=== PATIENT | male | born 1975 | race Caucasian/White ===

== ENCOUNTER 2021-04-22 13:02 | Emergency (ER) | payer OTHER, BC ==
[2021-04-22] MEDS: Morphine 2 MG/ML SYRINGE IM ONE ×2 (15:07→15:28)
== END 2021-04-22 16:48 | disposition home or self-care (01) ==
LOC: LL.ED 13:02 → SUPCPDRO 13:02 → LL.ED 16:48
DX: S82.832A Other fracture of upper and lower end of left fibula, initial encounter for closed fracture (principal); W19.XXXA Unspecified fall, initial encounter; Y99.0 Civilian activity done for income or pay
CPT/HCPCS: 29515; 73590; 73610; 96372; 99283; J2270

== ENCOUNTER 2022-03-25 12:22 | Emergency (ER) | payer BC | END 2022-03-25 13:06 | disposition home or self-care (01) | LOC: LL.ED 12:22 | DX: L03.116 Cellulitis of left lower limb (principal); E78.00 Pure hypercholesterolemia, unspecified; I10 Essential (primary) hypertension; K21.9 Gastro-esophageal reflux disease without esophagitis; Z79.899 Other long term (current) drug therapy | CPT/HCPCS: 99283 ==

== ENCOUNTER 2023-04-29 22:04 | Emergency (ER) | payer BC ==
[2023-04-29] MEDS: Aluminum Hydroxide/Magnesium Hydroxide/Simethicone Susp 30 ML Cup PO ONE (22:43)
[2023-04-29] MEDS: Lidocaine 2% Viscous Solution 15 ML UD PO ONE (22:43)
[2023-04-29] MEDS: Ketorolac 15 MG/ML SDV IVPUSH ONE (22:46)
[2023-04-29] MEDS: Pantoprazole 40 MG Vial IVPUSH ONE (22:46)
[2023-04-29] MEDS: Ondansetron 4 MG/2 ML SDV IVPUSH ONE (22:46)
[2023-04-29] MEDS: Sodium Chloride 0.9% 1,000 ML IV ONE (22:51)
[2023-04-29 22:55] LABS: BASOPHILS ABSOLUTE AUTO 0.01 K/uL (0.00-0.20); BASOPHILS PERCENT AUTO 0.1 % (0.0-2.0); EOSINOPHILS ABSOLUTE AUTO 0.24 K/uL (0.00-0.50); EOSINOPHILS PERCENT AUTO 2.2 % (0.0-5.0); HEMATOCRIT 46.3 % (39.0-49.0); HEMOGLOBIN 16.2 g/dL (13.1-16.8); LYMPHOCYTES ABSOLUTE AUTO 1.36 K/uL (0.50-3.50); LYMPHOCYTES PERCENT AUTO 12.3 % (10.0-50.0); MEAN CORPUSCULAR HEMOGLOBIN 30.6 pg (28.2-33.3); MEAN CORPUSCULAR VOLUME 87.5 fL (84.0-98.0); MONOCYTES ABSOLUTE AUTO 1.47 K/uL (0.00-1.00); MONOCYTES PERCENT AUTO 13.3 % (2.0-14.0); NEUTROPHILS ABSOLUTE AUTO 7.97 K/uL (1.40-7.00); NEUTROPHILS PERCENT AUTO 72.1 % (45.0-80.0); PLATELET COUNT,PLT 253 K/uL (150-350); RED BLOOD CELL COUNT 5.29 M/uL (4.33-5.41); RED CELL DISTRIBUTION WIDTH 13.4 % (11.2-14.1); WHITE BLOOD CELL COUNT,WBC 11.1 K/uL (4.0-10.2)
[2023-04-29] MEDS: Sodium Chloride 0.9% 10 ML Syringe FLUSH PRN (23:08)
[2023-04-29 23:12] LABS: ALANINE AMINOTRANSFERASE,ALT 39 U/L (12-78); ALBUMIN 3.3 g/dL (3.4-5.0); ALKALINE PHOSPHATASE 89 IU/L (46-116); ANION GAP 10.2 meq/L (7-15); ASPARTATE AMNIOTRANSFERASE,AST 23 U/L (15-37); BILIRUBIN TOTAL 0.8 mg/dL (0.2-1.0); BLOOD UREA NITROGEN,BUN 26 mg/dL (7-18); CALCIUM 8.4 mg/dL (8.5-10.1); CARBON DIOXIDE,CO2 21.8 mmol/L (21.0-32.0); CHLORIDE,CL 107 mmol/L (98-107); CREATININE 1.37 mg/dL (0.51-1.17); ESTIMATED GFR 64 mL/min (>=60); GLUCOSE RANDOM 139 mg/dL (70-99); LIPASE 77 U/L (16-77); POTASSIUM,K 3.9 mmol/L (3.5-5.1); PROTEIN TOTAL,TP 7.1 g/dL (6.4-8.2); SODIUM,NA 139 mmol/L (136-145)
[2023-04-29 23:32] LABS: INFLUENZA A NAA NEGATIVE (NEGATIVE); INFLUENZA B NAA NEGATIVE (NEGATIVE); RESPIRATORY SYNCYTIAL VIR NAA NEGATIVE (NEGATIVE)
[2023-04-29 23:35] LABS: CORONAVIRUS COVID-19 NAA POSITIVE (NEGATIVE)
[2023-04-30] MEDS: Sodium Chloride 0.9% 1,000 ML IV ONE (00:08)
[2023-04-30] MEDS: Loperamide 2 MG Tab PO ONE (00:11)
[2023-04-30] MEDS: traMADol 50 MG Tab PO ONE (00:12)
[2023-04-30] MEDS: Take Home: Ondansetron 4 MG Tab.DIS, 5 Tab Pack PO ONE (00:15)
[2023-04-30] MEDS: Take Home: traMADol 50 MG, 4 Tab Pack PO ONE (00:15)
== END 2023-04-30 01:15 | disposition home or self-care (01) ==
LOC: LL.ED 22:04
DX: U07.1 COVID-19 (principal); K52.9 Noninfective gastroenteritis and colitis, unspecified; I10 Essential (primary) hypertension; E78.00 Pure hypercholesterolemia, unspecified; E66.9 Obesity, unspecified; Z79.899 Other long term (current) drug therapy
CPT/HCPCS: 0241U; 36415; 74022; 80053; 83690; 85025; 96361; 96374; 96375; 99284; 99284-25; A9270-GY; C9113; J1885; J2405; J3490; J7030; Q0162

== ENCOUNTER 2023-08-14 15:15 | Emergency (ER) | payer BC ==
[2023-08-14] MEDS ORDERED: Sodium Chloride 0.9% 10 ML Syringe FLUSH PRN (15:51)
[2023-08-14 16:19] LABS: BASOPHILS ABSOLUTE AUTO 0.02 K/uL (0.00-0.20); BASOPHILS PERCENT AUTO 0.2 % (0.0-2.0); EOSINOPHILS ABSOLUTE AUTO 0.04 K/uL (0.00-0.50); EOSINOPHILS PERCENT AUTO 0.4 % (0.0-5.0); HEMATOCRIT 43.9 % (39.0-49.0); HEMOGLOBIN 15.3 g/dL (13.1-16.8); LYMPHOCYTES ABSOLUTE AUTO 0.71 K/uL (0.50-3.50); LYMPHOCYTES PERCENT AUTO 6.9 % (10.0-50.0); MEAN CORPUSCULAR HEMOGLOBIN 31.1 pg (28.2-33.3); MEAN CORPUSCULAR HGB CONC 34.9 g/dL (31.7-36.0); MEAN CORPUSCULAR VOLUME 89.2 fL (84.0-98.0); MONOCYTES ABSOLUTE AUTO 1.41 K/uL (0.00-1.00); MONOCYTES PERCENT AUTO 13.6 % (2.0-14.0); NEUTROPHILS ABSOLUTE AUTO 8.18 K/uL (1.40-7.00); NEUTROPHILS PERCENT AUTO 78.9 % (45.0-80.0); PLATELET COUNT,PLT 177 K/uL (150-350); RED BLOOD CELL COUNT 4.92 M/uL (4.33-5.41); RED CELL DISTRIBUTION WIDTH 12.9 % (11.2-14.1); WHITE BLOOD CELL COUNT,WBC 10.4 K/uL (4.0-10.2)
[2023-08-14] MEDS ORDERED: Lidocaine 1% 5 ML VIAL INJECT ONE (16:35)
[2023-08-14 16:37] LABS: ALBUMIN 3.2 g/dL (3.4-5.0); BILIRUBIN TOTAL 0.7 mg/dL (0.2-1.0); CALCIUM 8.5 mg/dL (8.5-10.1); CARBON DIOXIDE,CO2 30.4 mmol/L (21.0-32.0); CREATININE 1.13 mg/dL (0.51-1.17); EST CRCL DRUG DOSING (CG) 99.22 mL/min; PROTEIN TOTAL,TP 7.5 g/dL (6.4-8.2)
[2023-08-14 16:38] LABS: ANION GAP 10.6 meq/L (7-15)
[2023-08-14] MEDS ORDERED: cefTRIAXone 1 GM, Lidocaine 1% 2.1 ML IM SCH (16:45)
[2023-08-14] MEDS: cefTRIAXone 1 GM, Lidocaine 1% 2.1 ML IM ONE ×2 (16:52→16:53)
[2023-08-14] MEDS: Potassium Bicarbonate/Cit Ac 20 MEQ Effervescent Tab PO ONE ×3 (16:52→17:48)
[2023-08-14] MEDS: cefTRIAXone 1 GM Vial IM ONE (16:53)
[2023-08-14] MEDS ORDERED: Acetaminophen 650 MG Supp RECTAL ONE (17:04)
[2023-08-14] MEDS: traMADol 50 MG Tab PO ONE (17:12)
[2023-08-14] MEDS: Acetaminophen 325 MG Tab PO ONE (17:13)
[2023-08-14] MEDS: Take Home: Cephalexin 500 MG Cap, 6 Cap Pack PO ONE (17:54)
== END 2023-08-14 18:00 | disposition home or self-care (01) ==
LOC: LL.ED 15:15
DX: L03.116 Cellulitis of left lower limb (principal); E87.6 Hypokalemia; I10 Essential (primary) hypertension; E78.00 Pure hypercholesterolemia, unspecified; K21.9 Gastro-esophageal reflux disease without esophagitis; Z79.899 Other long term (current) drug therapy
CPT/HCPCS: 36415; 80053; 83605; 85025; 87040; 96372; 99283; A9270; J0696; 99284; J3490